=== PATIENT | female | born 1950 | race Caucasian/White ===

== ENCOUNTER 2020-03-27 05:18 | Inpatient (IN) | payer MEDICARE ==
[~2020-03-27] VITALS: Ht 162.6 cm; Wt 95.7 kg
[2020-03-27] MEDS ORDERED: SODIUM CHLORIDE 0.9% 1,000 ML IV ONE ×2 (05:25→06:15)
[2020-03-27 06:06] LABS: BASOPHILS % 0.5 % (0.0-2.0); HEMATOCRIT. 42.1 % (36.0-48.0); HEMOGLOBIN. 14.1 g/dL (12.0-16.0); LYMPHOCYTES % 24.8 % (20.0-50.0); MEAN CORPUSCULAR HEMOGLOBIN 33.6 pg (28.0-32.0); MEAN CORPUSCULAR VOLUME 100.6 fL (81.0-99.0); MEAN PLATELET VOLUME 10.1 fl (7.4-10.4); MONOCYTES % 6.3 % (2.0-8.0); NEUTROPHILS % 67.4 % (40.0-76.0); PLATELET 272 x1000/uL (130-400); RED BLOOD CELL COUNT 4.18 mill/uL (4.2-5.4); RED CELL DISTRIBUTION WIDTH 14.6 % (11.6-14.6)
[2020-03-27 06:22] LABS: CHLORIDE 108 mEq/L (98-107)
[2020-03-27 06:28] LABS: ETHANOL BLOOD < 10 mg/dL
[2020-03-27 06:33] LABS: CREATINE KINASE 113 IU/L (26-192)
[2020-03-27] MEDS ORDERED: ASPIRIN 325MG EC TABLET PO ONE (06:45)
[2020-03-27] MEDS ORDERED: VANCOMYCIN 1 G PREMIX 200 ML IV ONE (06:45)
[2020-03-27] MEDS ORDERED: PIPERACILLIN/TAZ 3.375G PREMIX 50 ML IV ONE (06:45)
[2020-03-27] MEDS ORDERED: ENOXAPARIN 120MG/0.8ML SYR SUBCUT ONE (06:45)
[2020-03-27] MEDS ORDERED: ONDANSETRON 4MG ODT PO ONE (08:00)
[2020-03-27] MEDS ORDERED: ATROPINE SULFATE 1MG/10ML SYR IV ONE (09:00)
[2020-03-27] MEDS ORDERED: MORPHINE SULFATE 2 MG/ML CPJ (NOT FOR IM USE) IV SCH (09:15)
[2020-03-27] MEDS ORDERED: DEXTROSE 50% WATER 50ML SYRINGE IV PRN (09:45)
[2020-03-27] MEDS ORDERED: ONDANSETRON HCL 4MG/2ML INJ IV PRN (09:45)
[2020-03-27] MEDS ORDERED: FUROSEMIDE 40MG/4ML VIAL IV SCH (09:45)
[2020-03-27] MEDS ORDERED: DOPAMINE 400MG/250ML PREMIX 250 ML IV SCH (10:15)
[2020-03-27] MEDS: LEVOFLOXACIN 500MG PREMIX 100 ML IV SCH (10:18)
[2020-03-27] MEDS: DOPAMINE HCL 400 MG in DEXT 5% WATER 240 ML IV SCH (10:45)
[2020-03-27] MEDS: ASPIRIN 81MG EC TABLET PO SCH (10:46)
[2020-03-27] MEDS: BLOOD SUGAR DIAGNOSTIC STRIP TEST SCH ×3 (11:57→21:00)
[2020-03-27] MEDS: INSULIN LISPRO 100 UNITS/ML SUBCUT SCH ×3 (12:00→17:00)
[2020-03-27 13:52] LABS: HEPATITIS B SURFACE ANTIGEN NEGATIVE
[2020-03-27 14:21] LABS: HEPATITIS A AB IGM NEGATIVE (NEGATIVE)
[2020-03-27 14:26] LABS: CLARITY URINE TURBID (CLEAR); COLOR URINE DARK YELLOW (YELLOW); KETONES URINE NEGATIVE (NEGATIVE); LEUKOCYTE ESTERASE URINE 2+ (NEGATIVE); NITRITE URINE NEGATIVE (NEGATIVE); OCCULT BLOOD URINE 3+ (NEGATIVE); PROTEIN URINE 3+ (NEGATIVE); SPECIFIC GRAVITY URINE 1.023 (1.005-1.030)
[2020-03-27 14:50] LABS: *AMPHETAMINES SCREEN URINE NEGATIVE (NEGATIVE); *BARBITURATES SCREEN URINE NEGATIVE (NEGATIVE); *BENZODIAZEPINES SCREEN URINE NEGATIVE (NEGATIVE)
[2020-03-27 14:51] LABS: *COCAINE SCREEN URINE NEGATIVE (NEGATIVE); METHADONE URINE SCREEN NEGATIVE (NEGATIVE); OPIATES URINE SCREEN PRESUMTIVE POSITIVE (NEGATIVE)
[2020-03-27 14:52] LABS: CANNABINOID URINE SCREEN NEGATIVE (NEGATIVE); PHENCYCLIDINE URINE SCREEN NEGATIVE (NEGATIVE)
[2020-03-27] MEDS: METOCLOPRAMIDE HCL 10MG/2ML VIAL IV SCH (18:30)
[2020-03-27 23:30] VITALS: BP 112/71
[2020-03-27 23:38] VITALS: BP 112/71
[2020-03-28] VITALS (40 sets, daily range): BP systolic 81–222; BP diastolic 32–128
[2020-03-28] MEDS: INSULIN LISPRO 100 UNITS/ML SUBCUT SCH ×5 (00:01→21:30)
[2020-03-28 03:25] LABS: CLARITY URINE CLOUDY (CLEAR); COLOR URINE DK YELLOW (YELLOW); KETONES URINE TRACE (NEGATIVE); LEUKOCYTE ESTERASE URINE 1+ (NEGATIVE); NITRITE URINE NEGATIVE (NEGATIVE); OCCULT BLOOD URINE 2+ (NEGATIVE); PROTEIN URINE TRACE (NEGATIVE); SPECIFIC GRAVITY URINE 1.016 (1.005-1.030)
[2020-03-28] MEDS ORDERED: DEXT 5%/0.45% NACL 1000ML 1,000 ML IV SCH (05:45)
[2020-03-28] MEDS: METOCLOPRAMIDE HCL 10MG/2ML VIAL IV SCH ×4 (06:23→17:28)
[2020-03-28] MEDS: BLOOD SUGAR DIAGNOSTIC STRIP TEST SCH ×4 (06:23→21:24)
[2020-03-28 06:46] LABS: INR 1.3; PROTHROMBIN TIME 14.2 sec (9.6-11.0)
[2020-03-28 06:51] LABS: BASOPHILS % 0.1 % (0.0-2.0); HEMATOCRIT. 41.5 % (36.0-48.0); HEMOGLOBIN. 13.9 g/dL (12.0-16.0); LYMPHOCYTES % 7.3 % (20.0-50.0); MEAN CORPUSCULAR HEMOGLOBIN 34.2 pg (28.0-32.0); MEAN CORPUSCULAR VOLUME 101.6 fL (81.0-99.0); MEAN PLATELET VOLUME 9.6 fl (7.4-10.4); MONOCYTES % 6.8 % (2.0-8.0); NEUTROPHILS % 85.8 % (40.0-76.0); PLATELET 207 x1000/uL (130-400); RED BLOOD CELL COUNT 4.08 mill/uL (4.2-5.4); RED CELL DISTRIBUTION WIDTH 14.7 % (11.6-14.6)
[2020-03-28] MEDS: ENOXAPARIN 100MG/ML SYR SUBCUT SCH ×2 (07:57)
[2020-03-28] MEDS: ASPIRIN 81MG EC TABLET PO SCH (08:11)
[2020-03-28] MEDS ORDERED: FUROSEMIDE 40MG/4ML VIAL IV SCH (09:00)
[2020-03-28] MEDS: LEVOFLOXACIN 500MG PREMIX 100 ML IV SCH (10:32)
[2020-03-28] MEDS ORDERED: PHENYLEPHRINE 100MCG/ML 10ML VIAL (CATH LAB) IV ONE (10:50)
[2020-03-28] MEDS ORDERED: HEPARIN SODIUM 1,000 UNIT/1ML VIAL IV ONE (10:50)
[2020-03-28] MEDS ORDERED: IOHEXOL-300 100 ML BOTTLE ONE (11:25)
[2020-03-28] MEDS ORDERED: IODIXANOL 320MG/ML 100 ML BOTTLE IV ONE (11:25)
[2020-03-28] MEDS ORDERED: LIDOCAINE HCL 1% 20ML VIAL (Pyxis) INJ ONE (11:25)
[2020-03-28] MEDS ORDERED: FENTANYL CITRATE/PF 50MCG/ML 2ML VIAL ONE (11:59)
[2020-03-28] MEDS ORDERED: MIDAZOLAM HCL 2 MG/2 ML VIAL ONE (11:59)
[2020-03-28] MEDS ORDERED: DOPAMINE 400MG/250ML PREMIX 250 ML IV PRN (12:30)
[2020-03-28] MEDS ORDERED: ATROPINE SULFATE 0.1MG/ML 10ML DISP.SYRIN ONE (12:34)
[2020-03-28] MEDS ORDERED: FUROSEMIDE 40MG/4ML VIAL ONE (12:42)
[2020-03-28] MEDS ORDERED: ASPIRIN 325MG EC TABLET PO ONE (12:58)
[2020-03-28] MEDS ORDERED: CLOPIDOGREL 75MG TABLET ONE (12:58)
[2020-03-28] MEDS: LISINOPRIL 2.5MG TABLET PO SCH (13:30)
[2020-03-28] MEDS ORDERED: ATROPINE SULFATE 1MG/10ML SYR IV PRN (13:45)
[2020-03-28] MEDS ORDERED: ACETAMINOPHEN 325MG TABLET PO PRN (13:45)
[2020-03-28] MEDS: NITROGLYCERIN OINT 1GM/INCH UDPKT TD SCH ×2 (14:00→21:30)
[2020-03-28] MEDS: DOPAMINE HCL 400 MG in DEXT 5% WATER 240 ML IV SCH (14:42)
[2020-03-28] MEDS: FUROSEMIDE 40MG/4ML VIAL IV SCH (17:28)
[2020-03-28] MEDS: CARVEDILOL 3.125 MG TABLET PO SCH (20:56)
[2020-03-28] MEDS ORDERED: EPOETIN ALFA 10000UNITS/ML VIAL SUBCUT NR (21:00)
[2020-03-29] VITALS (71 sets, daily range): BP systolic 65–141; BP diastolic 27–98
[2020-03-29] MEDS: METOCLOPRAMIDE HCL 10MG/2ML VIAL IV SCH ×4 (00:08→18:19)
[2020-03-29] MEDS: NITROGLYCERIN OINT 1GM/INCH UDPKT TD SCH ×3 (05:50→21:05)
[2020-03-29 05:56] LABS: BASOPHILS % 0.1 % (0.0-2.0); HEMATOCRIT. 37.7 % (36.0-48.0); HEMOGLOBIN. 12.5 g/dL (12.0-16.0); LYMPHOCYTES % 7.8 % (20.0-50.0); MEAN CORPUSCULAR HEMOGLOBIN 33.4 pg (28.0-32.0); MEAN CORPUSCULAR VOLUME 100.8 fL (81.0-99.0); MEAN PLATELET VOLUME 9.9 fl (7.4-10.4); MONOCYTES % 10.2 % (2.0-8.0); NEUTROPHILS % 81.9 % (40.0-76.0); PLATELET 199 x1000/uL (130-400); RED BLOOD CELL COUNT 3.73 mill/uL (4.2-5.4); RED CELL DISTRIBUTION WIDTH 14.9 % (11.6-14.6)
[2020-03-29] MEDS: BLOOD SUGAR DIAGNOSTIC STRIP TEST SCH ×4 (06:30→21:03)
[2020-03-29] MEDS: INSULIN LISPRO 100 UNITS/ML SUBCUT SCH ×4 (07:28→21:00)
[2020-03-29] MEDS: LISINOPRIL 2.5MG TABLET PO SCH (08:20)
[2020-03-29] MEDS: CARVEDILOL 3.125 MG TABLET PO SCH (08:20)
[2020-03-29] MEDS: ASPIRIN 325MG TABLET PO SCH (08:20)
[2020-03-29] MEDS: CLOPIDOGREL 75MG TABLET PO SCH (08:20)
[2020-03-29] MEDS: FUROSEMIDE 40MG/4ML VIAL IV SCH ×2 (08:20→18:19)
[2020-03-29] MEDS ORDERED: CLOPIDOGREL 75MG TABLET PO SCH (09:00)
[2020-03-29] MEDS ORDERED: DOPAMINE 400MG/250ML PREMIX 250 ML IV SCH (13:15)
[2020-03-29] MEDS ORDERED: DOPAMINE HCL 400 MG in DEXT 5% WATER 240 ML IV SCH (13:15)
[2020-03-29] MEDS: LEVOFLOXACIN 500MG PREMIX 100 ML IV SCH (14:38)
[2020-03-29] MEDS: DOPAMINE HCL 400 MG in DEXT 5% WATER 240 ML IV SCH (16:31)
[2020-03-29] MEDS: ACETAMINOPHEN 325MG TABLET PO PRN (20:15)
[2020-03-30] VITALS (61 sets, daily range): BP systolic 40–128; BP diastolic 23–97
[2020-03-30] MEDS: IPRATROPIUM/ALBUTEROL 0.5-3(2.5)MG/3ML NEB HHN PRN ×2 (00:29→17:04)
[2020-03-30] MEDS: METOCLOPRAMIDE HCL 10MG/2ML VIAL IV SCH ×5 (01:14→23:23)
[2020-03-30] MEDS: NITROGLYCERIN OINT 1GM/INCH UDPKT TD SCH ×3 (05:37→21:39)
[2020-03-30 05:54] LABS: BASOPHILS % 0.1 % (0.0-2.0); HEMATOCRIT. 36.8 % (36.0-48.0); HEMOGLOBIN. 12.4 g/dL (12.0-16.0); LYMPHOCYTES % 9.9 % (20.0-50.0); MEAN CORPUSCULAR HEMOGLOBIN 33.8 pg (28.0-32.0); MEAN CORPUSCULAR VOLUME 100.4 fL (81.0-99.0); MEAN PLATELET VOLUME 9.9 fl (7.4-10.4); MONOCYTES % 8.7 % (2.0-8.0); NEUTROPHILS % 81.3 % (40.0-76.0); PLATELET 186 x1000/uL (130-400); RED BLOOD CELL COUNT 3.67 mill/uL (4.2-5.4); RED CELL DISTRIBUTION WIDTH 14.9 % (11.6-14.6)
[2020-03-30] MEDS: BLOOD SUGAR DIAGNOSTIC STRIP TEST SCH ×4 (07:50→21:36)
[2020-03-30] MEDS: INSULIN LISPRO 100 UNITS/ML SUBCUT SCH ×4 (08:20→21:40)
[2020-03-30] MEDS: FUROSEMIDE 40MG/4ML VIAL IV SCH ×2 (09:49→16:59)
[2020-03-30] MEDS: ASPIRIN 325MG TABLET PO SCH (09:49)
[2020-03-30] MEDS: CLOPIDOGREL 75MG TABLET PO SCH (09:50)
[2020-03-30] MEDS: LEVOFLOXACIN 500MG PREMIX 100 ML IV SCH (09:50)
[2020-03-30] MEDS: LISINOPRIL 2.5MG TABLET PO SCH (09:50)
[2020-03-30] MEDS: ACETAMINOPHEN 325MG TABLET PO PRN (19:20)
[2020-03-30] MEDS: DOPAMINE HCL 400 MG in DEXT 5% WATER 240 ML IV SCH (23:24)
[2020-03-31] VITALS (47 sets, daily range): BP systolic 100–145; BP diastolic 17–96
[2020-03-31 05:38] LABS: BASOPHILS % 0.3 % (0.0-2.0); EOSINOPHILS % 0.2 % (0.0-5.0); HEMATOCRIT. 40.3 % (36.0-48.0); HEMOGLOBIN. 13.5 g/dL (12.0-16.0); LYMPHOCYTES % 12.3 % (20.0-50.0); MEAN CORPUSCULAR HEMOGLOBIN 33.6 pg (28.0-32.0); MEAN CORPUSCULAR VOLUME 100.2 fL (81.0-99.0); MEAN PLATELET VOLUME 9.7 fl (7.4-10.4); MONOCYTES % 11.3 % (2.0-8.0); NEUTROPHILS % 75.9 % (40.0-76.0); PLATELET 189 x1000/uL (130-400); RED BLOOD CELL COUNT 4.03 mill/uL (4.2-5.4); RED CELL DISTRIBUTION WIDTH 14.4 % (11.6-14.6)
[2020-03-31] MEDS: METOCLOPRAMIDE HCL 10MG/2ML VIAL IV SCH ×3 (06:08→17:09)
[2020-03-31] MEDS: NITROGLYCERIN OINT 1GM/INCH UDPKT TD SCH ×2 (06:09→14:24)
[2020-03-31] MEDS: INSULIN LISPRO 100 UNITS/ML SUBCUT SCH ×3 (08:20→16:59)
[2020-03-31] MEDS: BLOOD SUGAR DIAGNOSTIC STRIP TEST SCH ×3 (08:39→16:59)
[2020-03-31] MEDS: CLOPIDOGREL 75MG TABLET PO SCH (08:58)
[2020-03-31] MEDS: FUROSEMIDE 40MG/4ML VIAL IV SCH ×2 (08:58→17:09)
[2020-03-31] MEDS: ASPIRIN 325MG TABLET PO SCH (08:58)
[2020-03-31] MEDS: LISINOPRIL 2.5MG TABLET PO SCH (09:14)
[2020-03-31] MEDS: LEVOFLOXACIN 500MG PREMIX 100 ML IV SCH (09:20)
[2020-03-31] MEDS: POTASSIUM CHLORIDE 10MEQ TABLET SR PO SCH ×2 (09:22→17:09)
[2020-03-31] MEDS: CARVEDILOL 3.125 MG TABLET PO SCH (09:23)
[2020-03-31] MEDS ORDERED: GUAIFENESIN-DM 200MG-20MG/10ML UDC PO PRN (09:45)
[2020-03-31] MEDS ORDERED: SORBITOL 70% SOLN 30ML PO SCH (12:00)
[2020-04-01] MEDS ORDERED: LEVOFLOXACIN 500MG TABLET PO SCH (11:00)
== END 2020-03-31 18:00 | disposition short-term general hospital (02) | DRG 246 ==
LOC: ER 05:18 → MICUSO 07:44 → 3WST 23:40 → CVICU 03-28 11:30
PROVIDERS: ADMIT Internal Medicine; ATTEND Internal Medicine
PROC: 4A023N7 Measurement of Cardiac Sampling and Pressure, Left Heart, Percutaneous Approach (ICD-10-PCS; principal; 2020-03-28)
PROC: 027035Z Dilation of Coronary Artery, One Artery with Two Drug-eluting Intraluminal Devices, Percutaneous Approach (ICD-10-PCS; 2020-03-28)
PROC: B2111ZZ Fluoroscopy of Multiple Coronary Arteries using Low Osmolar Contrast (ICD-10-PCS; 2020-03-28)
PROC: B2181ZZ Fluoroscopy of Left Internal Mammary Bypass Graft using Low Osmolar Contrast (ICD-10-PCS; 2020-03-28)
DX: T82.858A Stenosis of other vascular prosthetic devices, implants and grafts, initial encounter (principal); A41.9 Sepsis, unspecified organism; I21.4 Non-ST elevation (NSTEMI) myocardial infarction; I50.21 Acute systolic (congestive) heart failure; R57.0 Cardiogenic shock; E44.1 Mild protein-calorie malnutrition; E87.2 Acidosis; G93.40 Encephalopathy, unspecified; I42.9 Cardiomyopathy, unspecified; E11.9 Type 2 diabetes mellitus without complications; E78.5 Hyperlipidemia, unspecified; I11.0 Hypertensive heart disease with heart failure; I25.10 Atherosclerotic heart disease of native coronary artery without angina pectoris; Y83.8 Other surgical procedures as the cause of abnormal reaction of the patient, or of later complication, without mention of misadventure at the time of the procedure; E66.9 Obesity, unspecified; E87.6 Hypokalemia; E87.8 Other disorders of electrolyte and fluid balance, not elsewhere classified; I48.0 Paroxysmal atrial fibrillation; Z95.1 Presence of aortocoronary bypass graft; Z79.84 Long term (current) use of oral hypoglycemic drugs; Y92.89 Other specified places as the place of occurrence of the external cause; Z79.82 Long term (current) use of aspirin; Z88.0 Allergy status to penicillin; Z79.02 Long term (current) use of antithrombotics/antiplatelets; Z79.899 Other long term (current) drug therapy; Z82.49 Family history of ischemic heart disease and other diseases of the circulatory system; Z95.5 Presence of coronary angioplasty implant and graft; Z68.36 Body mass index [BMI] 36.0-36.9, adult; Z03.818 Encounter for observation for suspected exposure to other biological agents ruled out
CPT/HCPCS: 36415; 71045; 74018; 80048; 80053; 80061; 80305; 80320; 81003; 82140; 82550; 82962; 83036; 83605; 83735; 83880; 84145; 84443; 84484; 85025; 86705; 86709; 86803; 87340; 92928; 93005; 93306; 93459; 93880; 99291; C1725; C1769; C1874; C1887; C1893; J0461; J0885; J1265; J1644; J1650; J1815; J1940; J1956; J2250; J2270; J2370; J2405; J2543; J2765; J3010; J3370; J3490; J7030; J7060; Q0162; Q9967; G0480; U0003-CS

== ENCOUNTER 2023-08-08 09:25 | Emergency (ER) | payer MEDICARE, MEDICAID ==
[~2023-08-08] VITALS: Ht 167.6 cm; Wt 82.0 kg
[2023-08-08 09:34] VITALS: PULSE 142; RESP 29
[2023-08-08] MEDS ORDERED: NOREPINEPHRINE 8MG/250ML PMX 250 ML IV STA (09:54)
[2023-08-08] MEDS ORDERED: FENTANYL 2500MCG/250ML PMX 250 ML IV ONE (10:00)
[2023-08-08] MEDS ORDERED: NOREPINEPHRINE 8MG/250ML PMX 250 ML IV ONE (10:00)
[2023-08-08] MEDS ORDERED: MIDAZOLAM HCL 100 MG in DEXT 5% WATER 80 ML IV ONE (10:00)
[2023-08-08] MEDS ORDERED: FENTANYL CITRATE/PF 50MCG/ML 2ML VIAL IV ONE (10:00)
[2023-08-08] MEDS ORDERED: SODIUM CHLORIDE 0.9% 1000ML BAG (SEPSIS BOLUS) IV ONE (10:00)
[2023-08-08] MEDS ORDERED: MIDAZOLAM HCL 100 MG in SODIUM CHLORIDE 0.9% 80 ML IV ONE (10:15)
[2023-08-08] MEDS ORDERED: FENTANYL CITRATE/PF 2,500 MCG in SODIUM CHLORIDE 0.9% 200 ML IV ONE (10:15)
[2023-08-08] MEDS ORDERED: SODIUM CHLORIDE 0.9% 1,000 ML IV ONE (10:30)
[2023-08-08 10:39] LABS: BASOPHILS % 0.5 % (0.0-2.0); DIFFERENTIAL COMMENT 0; EOSINOPHILS % 0.8 % (0.0-5.0); HEMATOCRIT. 42.9 % (36.0-48.0); HEMOGLOBIN. 13.2 g/dL (12.0-16.0); LYMPHOCYTES % 15.9 % (20.0-50.0); MEAN CORPUSCULAR HEMOGLOBIN 30.9 pg (28.0-32.0); MEAN CORPUSCULAR HGB CONC 30.7 g/dL (31.0-37.0); MEAN CORPUSCULAR VOLUME 100.5 fL (81.0-99.0); MEAN PLATELET VOLUME 10.5 fl (7.4-10.4); MONOCYTES % 1.3 % (2.0-8.0); NEUTROPHILS % 81.5 % (40.0-76.0); PLATELET 106 x1000/uL (130-400); RED BLOOD CELL COUNT 4.27 mill/uL (4.2-5.4); RED CELL DISTRIBUTION WIDTH 19.4 % (11.6-14.6); WHITE BLOOD COUNT 7.7 x1000/uL (4.5-11.0)
[2023-08-08 10:42] LABS: BG BASE EXCESS -16.3 mmol/L (-2.0-2.0); BG CARBOXYHEMOGLOBIN 0.4 % (0.5-1.5); BG DEOXYHEMOGLOBIN 16.1 % (0.0-5.0); BG FRACTION INSPIRED OXYGEN 100; BG HCO3 ACT 14.8 mmol/L (22.0-26.0); BG METHEMOGLOBIN 0.3 % (0.0-1.5); BG OXYGEN SATURATION 83.8 % (92.0-98.5); BG OXYHEMOGLOBIN 83.2 % (94.0-97.0); BG PCO2 57.5 mmHg (35.0-45.0); BG PH 7.027 (7.350-7.450); BG PO2 67.1 mmHg (75.0-100.0); BG SAMPLE SITE RIGHT RADIAL; BG TOTAL HEMOGLOBIN 13.7 g/dL (12.0-18.0); BG VENT MODE PRVC
[2023-08-08 10:45] VITALS: TEMP 97.2
[2023-08-08 10:47] LABS: CHLORIDE 111 mEq/L (98-107); INDEX HEMOLYSI 3 (1-3); INDEX ICTERIC 1 (1-4); INDEX LIPEMIC 1 (1-3); POTASSIUM 5.2 mEq/L (3.5-5.1); SODIUM 140 mEq/L (136-145)
[2023-08-08 10:48] LABS: INR 1.9; PROTHROMBIN TIME 19.3 sec (9.6-11.0)
[2023-08-08 10:51] VITALS: PULSE 98; RESP 20; O2SAT 98
[2023-08-08 10:53] VITALS: BP 92/52
[2023-08-08 10:56] LABS: ALANINE AMINOTRANSFERASE 37 IU/L (13-61); ALBUMIN 2.2 g/dL (3.4-5.0); ASPARTATE AMINOTRANSFERASE 55 IU/L (15-37); CALCIUM 8.4 mg/dL (8.5-10.1); CARBON DIOXIDE 25 mEq/L (21-32); CREATININE 1.8 mg/dL (0.6-1.3); GLUCOSE 154 mg/dL (70-105); PROTEIN TOTAL 4.6 g/dL (6.0-8.3); UREA NITROGEN BLOOD 60 mg/dL (7-21)
[2023-08-08] MEDS ORDERED: SODIUM BICARBONATE 8.4% 1 MEQ/ML 50ML SYR IV NR (11:29)
[2023-08-08] MEDS ORDERED: ONDANSETRON HCL 4MG/2ML INJ IV PRN (11:45)
[2023-08-08] MEDS ORDERED: NA PHOS,M-B/NA PHOS,DI-BA ENEMA 118ML PR PRN (11:45)
[2023-08-08] MEDS ORDERED: IPRATROPIUM/ALBUTEROL 0.5-3(2.5)MG/3ML NEB HHN SCH (11:45)
[2023-08-08] MEDS ORDERED: IPRATROPIUM/ALBUTEROL 0.5-3(2.5)MG/3ML NEB HHN PRN (11:45)
[2023-08-08] MEDS ORDERED: MAGNESIUM/ALUMINUM HYDROXIDE/SIMETHICONE 30ML UDC PO PRN (11:45)
[2023-08-08] MEDS ORDERED: GUAIFENESIN 200MG/10ML SUGAR FREE UDC PO PRN (11:45)
[2023-08-08] MEDS ORDERED: ACETAMINOPHEN 325MG TABLET PO PRN ×2 (11:45)
[2023-08-08] MEDS ORDERED: DOCUSATE SODIUM 100MG CAPSULE PO PRN (11:45)
[2023-08-08] MEDS ORDERED: SODIUM POLYSTYRENE SULFONATE 15 G/60 ML BOT PO NR (11:45)
[2023-08-08] MEDS ORDERED: DEXT 5%/0.9% NACL 1,000 ML IV SCH (12:00)
[2023-08-08 12:13] LABS: LACTIC ACID 5.3 mmol/L (0.4-2.0)
[2023-08-08 12:14] LABS: TROPONIN I HIGH SENSITIVITY 517 ng/L (<54)
[2023-08-08] MEDS ORDERED: ENOXAPARIN 30MG/0.3ML SYR SUBCUT SCH (13:00)
[2023-08-08] MEDS ORDERED: LEVOFLOXACIN 500MG PREMIX 100 ML IV SCH (13:00)
[2023-08-08] MEDS ORDERED: VANCOMYCIN 1.5GM/250ML IVPB 250 ML IV NR (14:00)
[2023-08-08] MEDS ORDERED: METHYLPREDNISOLONE SOD SUCC 125MG/2ML (ACT-O-VIAL) IV SCH (14:00)
[2023-08-08] MEDS ORDERED: NOREPINEPHRINE 8MG/250ML PMX 250 ML IV PRN (19:30)
[2023-08-09] MEDS ORDERED: ASPIRIN 81MG EC TABLET PO SCH (09:00)
[2023-08-09] MEDS ORDERED: LEVOFLOXACIN 250MG PREMIX 50 ML IV SCH (13:00)
== END 2023-08-08 11:17 ==
LOC: ER 09:25
DX: I46.9 Cardiac arrest, cause unspecified (principal); I49.9 Cardiac arrhythmia, unspecified
CPT/HCPCS: 36556; 80053; 82962; 83605; 85025; 85610; 87040; 84484; 36415; 84145; 71045; 82805; 82375; 31500 ×2; 94002; 93005; 96365; 99291; 36600; J3010; J3490; J7050 ×2; J7030; J2250; J7060